=== PATIENT | male | born 1940 | race Caucasian/White ===

== ENCOUNTER → 2016-11-20 | Outpatient (CLI) | payer MEDICARE, BC ==
[~2016-11-20] MED LIST: BAYER CHEWABLE81 MG PO; CARDIZEM90 MG PO; COLACE-DPS100 MG PO; COUMADIN4 MG PO; CULTURELLE1 CAP PO; FLEXERIL-DPS10 MG PO; FLOMAX DPS0.4 MG PO; GLUCOPHAGE-DPS500 MG PO; LANTUS SOL100 UNIT/1 SQ; LASIX DPS40 MG PO; LEVAQUIN250 MG PO; LOPRESSOR DPS50 MG PO; MAALOX DPS30 ML PO; MILK OF MAGNESI10 ML PO; MIRALAX PACKET17 GM PO; MIRALAX17 GM PO; MUCINEX600 MG PO; OMEGA-3 DPS1000 MG PO; OXY IR DPS5 MG PO; PRAVACHOL80 MG PO; PRILOSEC DPS20 MG PO; ROCALTROL DP0.25 MCG PO; SENOKOT S1 TAB PO; SOD BICARB TAB650 MG PO; TUMS DPS500 MG PO; TYLENOL DPS325 MG PO; ULTRAM DPS50 MG PO; VITAMIN D1000 UNIT PO; ZESTRIL DPS5 MG PO; ZYLOPRIM-DPS100 MG PO
== END | disposition home or self-care (01) ==
LOC: EDT 08:00
DX: E11.22 Type 2 diabetes mellitus with diabetic chronic kidney disease (principal); N18.3 Chronic kidney disease, stage 3 (moderate); Z71.3 Dietary counseling and surveillance

== ENCOUNTER 2016-11-27 17:17 | Inpatient (IN) | payer MEDICARE, BC ==
[~2016-11-27] VITALS: Ht 182.9 cm; Wt 108.3 kg
[~2016-11-27 17:17] MED LIST changes: -CULTURELLE1 CAP PO; -LANTUS SOL100 UNIT/1 SQ; -SOD BICARB TAB650 MG PO
--- NOTE | 2016-11-29 13:57 | CO ---
ADMIT: 11/27/2016 RM/LOC: 507 [facility] MR#: [id number] [address] [facility] [address] [place], [place] [address] ROM[address] BENOIT [address] [place] [address] Consultation SEX: M AGE: 76 : 1940 DATE OF CONSULTATION: 11/28/2016 ATTENDING PHYSICIAN: Derek Hernandez CONSULTING PHYSICIAN: Gary Barnes MD REASON FOR ADMISSION: Acute kidney injury on chronic kidney disease. HISTORY OF PRESENT ILLNESS: This is a 76-year-old gentleman who has some chronic kidney disease. He had some labs checked over the past few weeks with some varying creatinine results. About six months ago, his creatinine was 2.19, three months ago it was 1.82, and one month ago 2.16, and three weeks ago 2.15, then had a reading of 2.53 about 11 days ago. At that time, he was found to have a blood sugar of 670. He actually refused admission and was started on insulin and had his creatinine rechecked then, it was 3.84, he refused admission and then hydrated at home. Three days after that, on the 23 of November, his creatinine was 2.55 and blood sugar at that time was 120. He said things were going much better. He was feeling pretty well. Denied problems. He ultimately saw Dr. Delcid yesterday and was found to have a creatinine at that time of 4.7 with a potassium of 5.4, bicarb of 16. So, he was sent in for admission and placed on IV fluids. Again, he denies any problems. He says his blood sugar has been running very well and denies any concerns regarding anything. He does have some chronic diastolic congestive failure. His edema has been pretty stable. He had been on Lasix, which has recently been stopped because of his elevated fluctuating creatinines. Anyway, because of his elevated creatinine, he was admitted and being consulted for medication and other medical problem management. PAST MEDICAL HISTORY: 1. Chronic atrial fibrillation, anticoagulation with Coumadin. 2. Obstructive sleep apnea, on CPAP. 3. Chronic kidney disease, stage 3. 4. Chronic back pain. 5. BPH. 6. Diabetes type 2, recently uncontrolled. 7. GERD. 8. Hyperlipidemia. 9. Hypertension. 10.Gout. 11.History of osteoarthritis of the hip. 12.Hyperparathyroidism, secondary. 13.Essential hypertension. 14.Chronic diastolic congestive heart failure. PAST SURGICAL HISTORY: 1. Hernia repair. 2. Total hip arthroplasty. 3. Knee arthroplasty. 4. Rotator cuff surgery. ADMIT: 11/27/2016 RM/LOC: 507 [facility] MR#: [id number] [address] [address] [facility] [address] [place] [address] Consultation SEX: M AGE: 76 : 1940 5. Tonsillectomy. HOME MEDICATIONS: 1. Allopurinol 300 mg at bedtime. 2. Metoprolol 25 mg b.i.d. 3. Lisinopril 5 mg daily. 4. Warfarin 4 mg at bedtime. 5. Calcitriol 0.25 mcg Wednesday, Wednesday, Wednesday. 6. Omeprazole 20 mg daily. 7. Furosemide 40 mg Wednesday, Wednesday, Wednesday. 8. Pravastatin 80 mg at bedtime. 9. Tamsulosin 0.4 mg at bedtime. 10.Diltiazem ER 180 mg daily. 11.Januvia 25 mg daily. 12.Lantus 24 units at bedtime. 13.Aspirin 81 mg at bedtime. 14.Fish oil 1000 mg daily. 15.Culturelle one daily. 16.Vitamin D3 at 1000 units Wednesday, Wednesday, Wednesday. 17.P.R.N. Tylenol. FAMILY HISTORY: Mother had carotid disease, hypertension. Father with brain cancer with METS. Brother with coronary artery disease and heart attack. SOCIAL HISTORY: He has been a never smoker. REVIEW OF SYSTEMS: Other complete review of systems obtained and negative except as above. PHYSICAL EXAMINATION: VITAL SIGNS: Temp 96.4, pulse 61, respirations 19, blood pressure 114/53, oxygen saturation 99% on room air. GENERAL: This is a well-appearing, 76-year-old gentleman. He is in no apparent distress. He is alert. He is oriented. HEENT: Head is normocephalic and atraumatic. Pupils are equal, round, and reactive to light and accommodation. His extraocular muscles are intact. Throat is clear. NECK: Supple. Trachea midline. Thyroid not palpable. HEART: Irregularly irregular. LUNGS: Clear bilaterally. ABDOMEN: Protuberant, but soft without any tenderness. EXTREMITIES: Lower extremities have 1+ lower extremity edema. He has bilateral small amount of venous insufficiency changes on his skin. NEURO: Cranial nerves are intact. He can move all extremities equally bilaterally. Range of motion in all extremities is per his normal. LABORATORY AND X-RAY DATA: Creatinine from earlier today was 4.7, potassium 5.4, sodium 140, bicarb 16, phosphorus 6.5, most recent glucose 240. ADMIT: 11/27/2016 RM/LOC: 7 [facility] MR#: [id number] [facility] [address] [address] [facility] [address] [place] [address] Consultation SEX: M AGE: 76 : 1940 ASSESSMENT: 1. Acute kidney injury on chronic kidney disease. 2. History of atrial fibrillation with anticoagulation. 3. Chronic diastolic congestive heart failure. 4. Diabetes. PLAN: We will continue on his insulin, watch his sugars closely with sliding scale insulin. He is on some IV fluid. Watch his kidney function and his electrolytes closely as well. I will get a pro-time and we will follow a hemoglobin in the morning and hopefully, his kidney function will improve slowly. Thank you very much for this consult. Gary Barnes MD/ esa JOB #: [id number] CC: Derek Hernandez, Attending Physician Derek Hernandez, Family Physician
[2016-12-01] MEDS ORDERED: LANTUS SOL100 UNIT/1 SQ (11:10)
[2016-12-01] MEDS ORDERED: CULTURELLE1 CAP PO (11:11)
[2016-12-01] MEDS ORDERED: SOD BICARB TAB650 MG PO (11:20)
--- NOTE | 2016-12-06 12:32 | DS ---
ADMIT: 11/27/2016 RM/LOC: 507 [facility] MR#: [id number] [facility]ED [facility]#: [id number] [id number] [place], [place] [address] ROM[address] BENOIT [address] [place] [address] Discharge Summary SEX: M AGE: 76 : 1940 ADMISSION DATE: 11/27/2016 DISCHARGE DATE: 11/30/2016 DISCHARGE DIAGNOSES: 1. Acute kidney injury on chronic kidney disease. Prerenal etiology resolving. 2. Diabetes mellitus type 2 with diabetic nephropathy. 3. Atrial fibrillation, on chronic anticoagulation. 4. Hypertension. 5. Hyperlipidemia. 6. Obesity. CONSULTATIONS: Bj Delcid MD, with Nephrology. PROCEDURES: None. REASON FOR ADMISSION: A very pleasant, 76-year-old gentleman noted to have a bump in his creatinine, baseline of 2 with recent acute renal failure. Had been noted to be greater than 4.5 at an office visit with Dr. Delcid, and he was admitted for further evaluation and treatment. For complete details, please see H and P dictated on day of admission. HOSPITAL COURSE: At the time of admission, patient was placed in a telemetry bed. He underwent monitoring. We monitored strict inputs and outputs. Urine electrolytes and ultrasound were obtained. He had no hydronephrosis. His urine electrolyte studies were all consistent with prerenal etiology. All nephrotoxins were stopped, and he was started on gentle IV hydration with slow improvement of his creatinine. We watched his blood sugars, which had been rather high recently. We continued with basal with end sliding scale insulin. His blood sugars improved. He ambulated and ate. His creatinine came down nicely, and at the time of discharge was just right around 2.5, just a little bit above his baseline. He was eating and drinking fine with no complaints of urinary retention. Was thought to be ready for discharge home on 11/30. ADMIT: 11/27/2016 RM/LOC: 507 [facility] MR#: [id number] [address] [facility] [address] [place], [place] [address] ROM[address] BENOIT [address] [place] [address] Discharge Summary SEX: M AGE: 76 : 1940 DISCHARGE DIET: A 2 g sodium, ADA diet as tolerated. DISCHARGE MEDICATIONS: Found on his discharge med sheet. We will stop his bolus insulin and just use Lantus. All his nephrotoxins and Lasix had been discontinued. DISCHARGE ACTIVITY: As tolerated. FOLLOWUP: He will have follow up with myself in the next week or so within the next several days for lab and then clinic followup from that point. Derek Hernandez MD/ roseannef JOB #: [id number] CC: Derek Hernandez MD, Attending Physician Derek Hernandez MD, Family Physician
== END 2016-11-30 16:42 | disposition home or self-care (01) | DRG 683 ==
LOC: 5MS 17:17
PROVIDERS: ADMIT Internal Medicine
DX: N17.9 Acute kidney failure, unspecified (principal); I13.0 Hypertensive heart and chronic kidney disease with heart failure and stage 1 through stage 4 chronic kidney disease, or unspecified chronic kidney disease; E87.2 Acidosis; I50.32 Chronic diastolic (congestive) heart failure; E11.22 Type 2 diabetes mellitus with diabetic chronic kidney disease; I48.2 Chronic atrial fibrillation; G47.33 Obstructive sleep apnea (adult) (pediatric); M54.9 Dorsalgia, unspecified; N18.4 Chronic kidney disease, stage 4 (severe); D50.9 Iron deficiency anemia, unspecified; E66.9 Obesity, unspecified; G89.29 Other chronic pain; N40.0 Benign prostatic hyperplasia without lower urinary tract symptoms; E11.65 Type 2 diabetes mellitus with hyperglycemia; K21.9 Gastro-esophageal reflux disease without esophagitis; E78.5 Hyperlipidemia, unspecified; M10.9 Gout, unspecified; N25.81 Secondary hyperparathyroidism of renal origin; Z96.649 Presence of unspecified artificial hip joint; Z82.49 Family history of ischemic heart disease and other diseases of the circulatory system; Z79.01 Long term (current) use of anticoagulants; Z79.84 Long term (current) use of oral hypoglycemic drugs; Z79.4 Long term (current) use of insulin; Z68.32 Body mass index [BMI] 32.0-32.9, adult; Z66 Do not resuscitate

== ENCOUNTER → 2016-12-18 | Outpatient (CLI) | payer MEDICARE, BC ==
[~2016-12-18] MED LIST changes: +CULTURELLE1 CAP PO; +LANTUS SOL100 UNIT/1 SQ; +SOD BICARB TAB650 MG PO
== END | disposition home or self-care (01) ==
LOC: NUE 12-08 09:30
DX: E11.22 Type 2 diabetes mellitus with diabetic chronic kidney disease (principal); N18.3 Chronic kidney disease, stage 3 (moderate); Z71.3 Dietary counseling and surveillance
CPT/HCPCS: 258